=== PATIENT | female | born 1940 ===

== ENCOUNTER 2018-11-26 02:13 | Inpatient (IN) | payer MEDICARE, OTHER ==
[~2018-11-26] VITALS: Ht 149.9 cm; Wt 79.4 kg
[2018-11-26] VITALS (13 sets, daily range): BP systolic 96–158; BP diastolic 50–85
[~2018-11-26 02:13] MED LIST: AMLO-125 PO; ESCI10TA8 PO; FURO20TA19 PO; LOSA100T75 PO; POTA-28 PO
[2018-11-26] MEDS ORDERED: NORMOSOL R SOLN(*) 1000 ML BAG 1,000 ML IV PRN (06:00)
[2018-11-26] MEDS ORDERED: ACETAMINOPHEN 500 MG TAB PO ONE (06:00)
[2018-11-26] MEDS ORDERED: BACITRACIN 50000 UNIT/VIAL 50,000 UNIT in NS 0.9% IRRIG(*) 1000ML PLCT 1,000 ML IR PRN (06:00)
[2018-11-26] MEDS ORDERED: MIDAZOLAM 2 MG/2 ML VIAL IVP PRN (06:00)
[2018-11-26] MEDS ORDERED: ceFAZolin(*) 2GM/D5W 50ML 50 ML IVPB ONE (06:00)
[2018-11-26] MEDS ORDERED: FAMOTIDINE 20 MG TAB PO ONE (06:00)
[2018-11-26] MEDS ORDERED: PREGABALIN 75 MG CAPSULE PO ONE (06:00)
[2018-11-26] MEDS ORDERED: LIDOCAINE/SOD BICARB 8.4% SYR ID ONE (06:00)
[2018-11-26] MEDS ORDERED: fentaNYL CITR 100 MCG/2 ML AMP ONE ×3 (06:18→10:27)
[2018-11-26] MEDS ORDERED: LIDOCAINE 2% IV 100 MG/5ML SYR ONE (06:19)
[2018-11-26] MEDS ORDERED: ROCURONIUM BR 10 MG/ML 5 ML SY 5 ML ONE (06:19)
[2018-11-26] MEDS ORDERED: ONDANSETRON 4 MG/2 ML VIAL ONE (06:20)
[2018-11-26] MEDS ORDERED: DEXAMETHASONE SOD PHOS 10MG/ML ONE (06:20)
[2018-11-26] MEDS ORDERED: PROPOFOL EMUL(*) 10MG/ML 20 ML 20 ML ONE (06:20)
[2018-11-26] MEDS ORDERED: ROPIVACAINE 0.2% 20 ML VIAL ONE (06:38)
[2018-11-26] MEDS ORDERED: THROMBIN (BOVINE) 20,000 UNIT VIAL ONE (06:38)
[2018-11-26] MEDS ORDERED: NS(*) 0.9% 100 ML BAG 200 ML ONE (06:56)
[2018-11-26] MEDS ORDERED: REMIFENTANIL HCL 1 MG VIAL ONE ×2 (06:56→08:18)
--- NOTE | 2018-11-26 09:45 | RADIOLOGY IMAGING REPORT ---
FACILITY: [facility] [place] PATIENT NAME: Deborah Juárez : 1940 MR: [id number] V: [id number] EXAM DATE: ORDERING PHYSICIAN: MANJU CORTES TECHNOLOGIST: Location: [facility] Patient: Deborah Juárez : 1940 Visit/Account:[id number] Date of Sevice: 11/26/2018 XR LUMBAR SPINE SINGLE VIEW Intraoperative films. FINDINGS: Intraoperative films demonstrates surgical probe and packing material projecting within the posterior soft tissues at the L3-4 interspace. Laminectomy changes evident. Final film demonstrates pedicle fusion changes between the L4 and L5 vertebral bodies. 4.5 mm retrolisthesis of L5 with respect L4.A dvanced disc degenerative changes in the lower thoracic/L1-2 level.: Atherosclerotic disease within the nonaneurysmal aorta. Advanced disc degenerative changes in the lo wer thoracic/L1-2 level.: IMPRESSION: Intraoperative films as described. Report Dictated By: Ned Beck MD at 11/26/2018 9:27 AM Report E-Signed By: Ned Beck MD at 11/26/2018 9:38 AM WSN:[id number]
[2018-11-26] MEDS ORDERED: ACETAMINOPHEN 500 MG TAB PO PRN (10:00)
[2018-11-26] MEDS ORDERED: MAGNESIUM HYDROXIDE* 30ML UDCP PO PRN (10:00)
[2018-11-26] MEDS ORDERED: HYDROmorphone HCL 2 MG/ML SDV IVP PRN (10:00)
[2018-11-26] MEDS ORDERED: oxyCODONE HCL 5 MG CAP PO PRN (10:00)
[2018-11-26] MEDS ORDERED: ONDANSETRON 4 MG/2 ML VIAL IVP PRN (10:00)
[2018-11-26] MEDS ORDERED: FLUSH 10 ML SYR IVP PRN (10:00)
[2018-11-26] MEDS ORDERED: BISACODYL 10 MG SUPP PR PRN (10:00)
[2018-11-26] MEDS ORDERED: DIAZEPAM 5 MG TAB PO PRN (10:00)
[2018-11-26] MEDS ORDERED: BENZOCAINE/MENTHOL 1 EACH LOZG PO PRN (10:00)
[2018-11-26] MEDS ORDERED: diphenhydrAMINE 25 MG CAP PO PRN (10:00)
[2018-11-26] MEDS ORDERED: ACETAMINOPHEN(*)1000 MG/100 ML 100 ML IVPB PRN (10:00)
--- NOTE | 2018-11-26 11:03 | OPERATIVE REPORT 1 ---
EVENT DATE: November 26, 2018 SURGEON: Min Arnold MD ANESTHESIOLOGIST: New Mathur MD ANESTHESIA: General endotracheal. CROWN IRONER: MELL Mak PREOPERATIVE DIAGNOSIS L4-L5 spinal stenosis with L4-L5 spondylolisthesis. POSTOPERATIVE DIAGNOSIS L4-L5 spinal stenosis with L4-L5 spondylolisthesis. PROCEDURE PERFORMED L4-L5 laminectomy with L4-L5 posterior lateral instrumented fusion. IV FLUIDS 2400 cc. ESTIMATED BLOOD LOSS 140 cc. IMPLANTS USED 1. 6.5 mm x 40 mm pedicle screws from Truspine x4. 2. 5.5 mm x 40 mm connecting rods from Truspine x2. 3. Locking caps from Truspine x4. SPECIMENS None. DRAINS None. COMPLICATIONS None. DISPOSITION Post-Anesthesia Care Unit. INDICATIONS Ms. Juárez is a tristan 78-year old female who presented to my clinic with a complaint of left greater than right radiating leg pain, numbness and tingling. The symptoms were primarily in an L5 distribution. She also had significant difficulty with walking tolerance, being able to walk only a few yards before having to take a break secondary to tiredness and heaviness in her legs. She had no bowel, bladder or constitutional symptoms. Her physical examination revealed good range of motion, negative straight leg raising tests bilaterally, normal strength and normal sensation throughout. Imaging studies showed multi- level degenerative disk disease with a grade 1 anterolisthesis at L4 and L5 and severe spinal stenosis at L4-L5. Secondary to her ongoing symptoms and failure of nonsurgical care, Ms. Juárez has offered and elected to undergo L4-L5 laminectomy with L4-L5 posterior lateral instrumented fusion. Prior to surgery, I explained in detail to the patient the possible risks of surgery. These risks include bleeding, infection, damage to surrounding structures, nerve root injury, spinal fluid leak, meningitis, persistent and/or worsening pain, need for further surgery, failure of instrumentation, , blindness, sexual dysfunction, autonomic nervous system dysfunction and other unforeseen medical and surgical complications. An understanding that in general spinal surgery is more predictive at improving extremity discomfort than axial spine pain was stressed. DESCRIPTION OF PROCEDURE On the date of surgery, the patient was met in the preoperative hold area and all questions were answered. The operative site was identified and marked by myself. The patient was then brought in good condition to the operating room and after succumbing to anesthesia was positioned in the prone position on a Steve table. All bony protuberances and soft tissues were well padded in the standard fashion. Care was taken to maintain appropriate perfusion pressures during anesthesia. Preoperative antibiotics were administered according to the appropriate timing schedule. At the conclusion of the procedure, sponge and needle counts were correct x2. A final time-out was undertaken by members of the operating team to confirm correct patient, correct levels and correct surgery. A vertical incision was made overlying the intended surgical levels and sharp dissection was carried out down to the posterior elements. A lateral radiograph was obtained to confirm appropriate spinal levels. Soft tissues were elevated off the posterior elements in a subperiosteal manner including the lamina of L3-L4 and L5. We dissected out and over the L4-L5 facet joints and identified the transverse processes of L4 and L5 bilaterally. This allowed us to uncover the appropriate starting point for pedicle screws at approximately the junction of the pars intra-articularis, the mid point of the transverse process and the lateral border of the facet joint. Once we had dissected out to the tips of the transverse processes, we packed thrombin-soaked sponges into the lateral gutters to maintain space and control bleeding. Attention was then turned to performance of the laminectomy. The superior aspect of the L5 spinous process, the entire L4 spinous process and the inferior aspect of the L3 spinous process were removed with a combination of Leksell rongeurs and a BookBub bone cutter. The lamina was thinned down the midline with a high-speed bur. I then entered the canal by using a curved curette to undermine the superior insertion of the ligamentum flavum from the inferior aspect of the L4 lamina. A [place] elevator was used to separate any dural adhesions from surrounding bone and soft tissue prior to use of a Kerrison punch. I then used #3 and #4 Kerrison rongeur to perform a midline decompression the entire length of L4 and including the superior aspect of L5 and the inferior aspect of L3. A significant amount of very thick and somewhat chalky appearing ligamentum flavum was discovered and we the dura from that prior to using the Kerrison punch to perform bilateral lateral recess decompressions, removing significant amounts of overgrown bone as well as thickened ligamentum flavum and thoroughly decompressing the canal and the nerve roots bilaterally. Foraminotomies were performed bilaterally to ensure complete decompression of those traversing L5 nerve roots. A [place] elevator and then a Talavera ball probe were used to palpate along those lateral recesses and out the foramina bilaterally to ensure that we had an adequate decompression. Attention was then turned to placement of pedicle screws. Pedicle screws were placed bilaterally at L4 and L5 by first identifying the appropriate starting point for a pedicle screw, again at the junction of the midpoint of the transverse process, the superior end of the pars intra-articularis and the inferolateral border of the facet joint. A high-speed bur was used to decorticate the overlying bone and then a Lenke style probe was advanced against resistance through the pedicle and into the vertebral body. A ball-tip feeler was used to palpate the pedicle superiorly, inferiorly, medially, laterally as well as distally to confirm absence of bony breaching. We selected 40 mm length pedicle screws for all four pedicles and these were all carefully placed and all had good purchase. The pedicle screws were tested with neurophysiologic monitoring and all tested well above appropriate limits. Once all pedicle screws were in place, we measured for appropriate length connecting rods and found that 40 mm connecting rods would work for both sides. These were placed within the tulips and we then were able to apply the locking caps effecting a bit of reduction of the spondylolisthesis. All of the hardware was checked and found to be in appropriate position and the locking cap, torque- limiting tabs were then broken off. Tabs were then broken off the pedicle screws and a lateral radiograph was obtained that showed excellent positioning of the hardware. The wound was then irrigated with 2L of antibiotic impregnated sterile saline solution and we then decorticated the transverse processes of L4 and L5 bilaterally. The high-speed bur was also used to decorticate and disrupt the facet joints bilaterally and the bone dust was then packed into those facet joints. Previously harvested bone graft from the laminectomy as well as some demineralized bone matrix and allograft were then formed into kind of logs of bone, which were then packed into the lateral gutters overlying the transverse processes of L4 and L5 on both sides. Once this was complete, the wound was closed in layers using a running Stratafix suture for the deep fascia, inverted interrupted sutures for the subcutaneous tissue and then running subcuticular skin stitch. Sponge and needle counts were correct x2. POSTOPERATIVE CARE PLAN The patient will remain in the hospital until she meets discharge criteria. She will be discharged home once she clears PT and will followup with me in approximately two weeks for wound check and examination. MTDD
[2018-11-26] MEDS: LR(*) 1000 ML BAG 1,000 ML IV PRN ×2 (11:55→22:13)
[2018-11-26] MEDS ORDERED: MIDAZOLAM 2 MG/2 ML VIAL ONE (11:56)
[2018-11-26] MEDS ORDERED: FLUMAZENIL 0.1 MG/ML 5 ML VIAL ONE (12:17)
--- NOTE | 2018-11-26 13:32 | Hospitalist Consultation ---
History of Present Illness Requesting Physician Dr. Arnold Reason for Consult Medical Management of Comorbidities Chief Complaint s/p lumbar laminectomy History of Present Illness She was admitted s/p lumbar laminectomy. It is reported the surgery went well and without complication. History Problems: (1) Hypertension Status: Chronic (2) Depression Status: Chronic (3) MANUEL (obstructive sleep apnea) Status: Chronic Home Meds Reported Medications Potassium Chloride (POTASSIUM CHLORIDE) 10 Meq Tablet.er, 10 MEQ PO BID 11/20/18 Furosemide (LASIX) 20 Mg Tablet, 1 TAB PO BID, TAB 11/20/18 Escitalopram Oxalate (ESCITALOPRAM OXALATE) 10 Mg Tablet, 10 MG PO QDAY, TAB 11/20/18 Losartan Potassium (LOSARTAN POTASSIUM) 100 Mg Tablet, 100 MG PO QDAY 11/20/18 Amlodipine Besylate (AMLODIPINE BESYLATE) 5 Mg Tablet, 1 TAB PO QDAY, TAB 11/20/18 Allergies: Coded Allergies: No Known Allergies (Verified Allergy, Unknown, 11/20/18) Patient History: FH: HTN (hypertension) MOTHER Hx Smoking: No (QUIT 60 YEARS AGO ) Smoking Status: Former Smoker Hx Alcohol Use: No Hx Substance Use Disorder: No Review of Systems All Systems Reviewed/Normal: Yes, Except as Noted Exam Vital Signs Vital Signs Date Time Temp Pulse Resp B/P (MAP) Pulse Ox O2 Delivery O2 Flow Rate FiO2 11/26/18 12:30 60 120/55 (76) 95 11/26/18 12:30 12 Nasal Cannula 2.0 11/26/18 11:40 98.1 General Appearance: No Acute Distress, Other (sleeping throughout exam) Cardiovascular: Regular Rate and Rhythm Respiratory: No Respiratory Distress, Other (snoring while sleeping) Assessment and Plan Problems: (1) S/P lumbar laminectomy Status: Acute Assessment & Plan: Management per Dr. Arnold. VTE will be deferred to primary. (2) Hypertension Status: Chronic Assessment & Plan: Continue chronic Amlodipine and Losartan with hold parameter s. Will hold Lasix and Potassium at this time. (3) Depression Status: Chronic Assessment & Plan: Continue chronic escitalopram. (4) MANUEL (obstructive sleep apnea) Status: Chronic Assessment & Plan: She has CPAP, but admits to not wearing it regularly. She did not bring her machine to use during admission. Will continue to monitor. Venous Thromboembolism Antithrombotics Is Pt On Any Antithrombotics?: No Problem Qualifiers (1) Hypertension: Hypertension type: essential hypertension Qualified Codes: I10 - Essential (primary) hypertension SRI GLOVERP Nov 26, 2018 13:32
[2018-11-26] MEDS: ceFAZolin(*) 2GM/D5W 50ML 50 ML IVPB SCH ×2 (14:27→22:13)
[2018-11-26] MEDS ORDERED: ceFAZolin(*) 2GM/D5W 50ML 50 ML IVPB SCH (17:00)
--- NOTE | 2018-11-26 17:05 | NUR ---
Physical Therapy Impression PT eval complete. Pt required Min A for supine>sit transfer via log roll. Pt will require additional instruction in log roll. Pt able to stand and ambulate to bathroom with CGA and use of RW. Noted R LE weakness with functional mobility. Pt with multiple episodes of vomiting and Pt left sitting at EOB with nursing due to this. Physical Therapy Goals 1. SBA bed mobility via log roll. 2. SBA transfers. 3. SBA gait x 150' with RW. 4. SBA ascend/descend 4 stairs. 5. Independent with lumbar precautions. Patient's Goals
[2018-11-26] MEDS ORDERED: PROMETHAZINE 25 MG/ML 1 ML AMP IVP PRN (18:10)
[2018-11-26] MEDS: DOCUSATE SODIUM 100 MG CAP PO SCH (21:00)
[2018-11-27] MEDS: APAP/HYDROCODONE 325/5 TAB PO PRN ×2 (01:12→08:39)
[2018-11-27 03:45] VITALS: BP 107/75
[2018-11-27] MEDS: ceFAZolin(*) 2GM/D5W 50ML 50 ML IVPB SCH (06:22)
[2018-11-27 07:51] VITALS: BP 107/59
[2018-11-27] MEDS ORDERED: LOR5/325 PO (08:35)
[2018-11-27] MEDS ORDERED: DIA5 PO (08:36)
[2018-11-27] MEDS ORDERED: DOCU240C84 PO (08:36)
[2018-11-27 08:38] VITALS: Ht 149.9 cm; Wt 79.4 kg
[2018-11-27] MEDS: DOCUSATE SODIUM 100 MG CAP PO SCH (08:38)
[2018-11-27] MEDS ORDERED: LOSARTAN POTASSIUM 50 MG TAB PO SCH (09:00)
[2018-11-27] MEDS ORDERED: ESCITALOPRAM OXALATE 10 MG TAB PO SCH (09:00)
[2018-11-27] MEDS ORDERED: amLODIPine BESYL(*) 5 MG TAB PO SCH (09:00)
--- NOTE | 2018-11-27 09:08 | EKG ---
FACILITY: [facility] - [place] PATIENT NAME: GILA CARROLL : [id number] MR: [id number] V: [id number] EXAM DATE: ORDERING PHYSICIAN: RYAN LOPEZ TECHNOLOGIST: Test Reason : Blood Pressure : / mmHG Vent. Rate : 073 BPM Atrial Rate : 073 BPM P-R Int : 206 ms QRS Dur : 098 ms QT Int : 452 ms P-R-T Axes : 054 011 020 degrees QTc Int : 497 ms Sinus rhythm with frequent premature ventricular complexes with 1st degree AV block T flattening consistent with inferior ischemia vs normal variant Prolonged QT No previous ECGs available Confirmed by ESMER LYNCH ([id number]) on 11/27/2018 7:04:49 PM Referred By: Confirmed By:ESMER LYNCH
--- NOTE | 2018-11-27 09:29 | RADIOLOGY IMAGING REPORT ---
FACILITY: [facility] PATIENT NAME: Deborah Juárez : 1940 MR: [id number] V: [id number] EXAM DATE: ORDERING PHYSICIAN: MANJU CORTES TECHNOLOGIST: Location: [facility] [place] Patient: Deborah Juárez : 1940 Visit/Account:[id number] Date of Sevice: 11/27/2018 Exam type: L-SPINE 2 OR 3 VIEW History: Status post L4-5 laminectomy fusion Comparison: Intraoperative lateral view of the lumbar spine from November 26, 2018. Findings: AP and lateral views are submitted. Postsurgical changes from posterior lumbar interbody fusion at L 4-5 again noted. There is a 5 mm anterior listhesis of L4 with respect L5 that appears relatively un changed. Laminectomy changes are seen from L3 to L5. Advanced spondylitic changes seen in the visua lized lower thoracic spine and at L1-2 incompletely imaged vascular calcifications in the abdominal a dian IMPRESSION: 1. Postsurgical changes of the lower lumbar spine as described above Advanced spondylotic changes lower thoracic spine and L1-2 Report Dictated By: Francesca Dasilva MD at 11/27/2018 9:16 AM Report E-Signed By: Francesca Dasilva MD at 11/27/2018 9:20 AM WSN:[email or web address]
--- NOTE | 2018-11-27 09:31 | RADIOLOGY IMAGING REPORT ---
FACILITY: [facility] PATIENT NAME: Deborah Juárez : 1940 MR: [id number] V: [id number] EXAM DATE: ORDERING PHYSICIAN: MANJU CORTES TECHNOLOGIST: Location: [facility] Patient: Deborah Juárez : 1940 Visit/Account:[id number] Date of Sevice: 11/27/2018 Exam type: CHEST PA LAT History: s/p L4-L5Lami/Fusion Comparison: August 13, 2018. Findings: Is hyperinflation of the lung rome. No evidence of acute pulmonary consolidation or overt pulmonar y edema. The cardiac silhouette is enlarged unchanged. There is prominence of the central pulmonary arteries and moderate ectasia the thoracic aorta. There appears to be localized eventration of the posterior aspect of the right hemidiaphragm Extensive spondylotic changes throughout the visualized t horacal lumbar spine. There are postsurgical changes from posterior lumbar interbody fusion at L4-5 IMPRESSION: 1. Hyperinflation of the lung rome although no evidence of acute pulmonary consolidation Cardiomegaly and ectatic aorta and prominent central pulmonary arteries appear stable Report Dictated By: Francesca Dasilva MD at 11/27/2018 9:20 AM Report E-Signed By: Francesca Dasilva MD at 11/27/2018 9:23 AM WSN:[email or web address]
--- NOTE | 2018-11-27 09:48 | NUR ---
Physical Therapy Impression Pt demonstrated safety with functional mobility including stairs and is safe to DC home when medically appropriate. Pt educated in lumbar precautions with returned verbal understanding. Physical Therapy Goals 1. SBA bed mobility via log roll. 2. SBA transfers. 3. SBA gait x 150' with RW. 4. SBA ascend/descend 4 stairs. 5. Independent with lumbar precautions. Patient's Goals
--- NOTE | 2018-11-27 10:52 | Hospitalist Progress Note ---
Subjective Progress Notes Subjective No acute events overnight. Pain is minimal and she is working well with PT. Patient Complains of: Neurological: No: Confusion, Weakness Cardiovascular: No: Chest Pain, Palpitations Respiratory: No: Congestion, Shortness of Breath Musculoskeletal: No: Pain Physical Exam Vital Signs Date Time Temp Pulse Resp B/P (MAP) Pulse Ox O2 Delivery O2 Flow Rate FiO2 11/27/18 07:51 98.7 107/59 (75) 99 Nasal Cannula 6.0 11/27/18 03:45 62 14 Intake and Output 11/27/18 07:04 Intake Total 2610 ml Output Total 400 ml Balance 2210 ml Intake Oral 260 ml IV Total 2350 ml Output Oral Regurgitation 400 ml # Voids 3 # Emes[place] 1 General Appearance: Alert, Awake, No Acute Distress Neuro: No Gross deficits Cardiovascular: Regular Rate and Rhythm Respiratory: No Respiratory Distress Extremities: Soft and Non Tender Psych: Alert & Oriented X3, Appropriate Mood & Affect Assessment and Plan Problems: (1) S/P lumbar laminectomy Status: Acute Assessment & Plan: Management per Dr. Arnold. VTE will be deferred to primary. (2) Hypertension Status: Chronic Assessment & Plan: Continue chronic Amlodipine and Losartan with hold parameters. Will hold Lasix and Potassium at this time. (3) Depression Status: Chronic Assessment & Plan: Continue chronic escitalopram. (4) MANUEL (obstructive sleep apnea) Status: Chronic Assessment & Plan: She has CPAP, but admits to not wearing it regularly. She did not bring her machine to use during admission. She will need oxygen bled into her CPAP @ home. Copies to: MANJU ARNOLD MD ; Exam Sepsis Risk: No Definite Risk Problem Qualifiers (1) Hypertension: Hypertension type: essential hypertension Qualified Codes: I10 - Essential (primary) hypertension OSCAR HOLLINS Nov 27, 2018 10:52
--- NOTE | 2018-11-27 10:56 | Miscellaneous Provider Note ---
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 Untill she follows up with her PCP to continue management. OSCAR HOLLINS Nov 27, 2018 10:56
== END 2018-11-27 14:00 | disposition home or self-care (01) | DRG 460 ==
LOC: OR 02:13 → MED 11:54
PROVIDERS: ADMIT Orthopaedic Surgery; ATTEND Orthopaedic Surgery
PROC: 01NB0ZZ Release Lumbar Nerve, Open Approach (ICD-10-PCS; 2018-11-26)
PROC: 0SG10AJ Fusion of 2 or more Lumbar Vertebral Joints with Interbody Fusion Device, Posterior Approach, Anterior Column, Open Approach (ICD-10-PCS; principal; 2018-11-26 07:09)
DX: M48.061 Spinal stenosis, lumbar region without neurogenic claudication (principal); M43.16 Spondylolisthesis, lumbar region; I10 Essential (primary) hypertension; F32.9 Major depressive disorder, single episode, unspecified; G47.33 Obstructive sleep apnea (adult) (pediatric)
CPT/HCPCS: 36415; 71046; 72020; 72100; 86850; 86900; 86901; 95940; 97161; C1713; J0690; J1100; J2001; J2250; J2405; J2550; J2704; J2795; J3010; J3490; J7050; J7120